=== PATIENT | female | born 1940 | race Caucasian/White ===

== ENCOUNTER 2016-10-11 18:29 | Emergency (ER) | payer MEDICARE, OTHER ==
[2016-10-11 18:39] VITALS: BP 155/74; PULSE 80; RESP 20; TEMP 98.1
--- NOTE | 2016-10-11 19:04 | ED ---
General Adult HPI - General Chief complaint: Back Pain/Injury Stated complaint: Body is in pain Time Seen by Provider: 10/11/16 18:54 Source: patient, RN notes reviewed Mode of arrival: ambulatory Limitations: no limitations - History of Present Illness Initial comments: 76-year-old female presents for medication refill. Her was admitted to the hospital and she does not have transportation to get home which is in [place]. Patient states she just needs a short supply of her medications until had this discharge. Patient states she does suffer from chronic pain. This time she is not having any acute medical emergencies. Patient denies any recent fever, chills, shortness of breath, chest pain, abdominal pain, nausea vomiting, numbness or tingling, dysuria or hematuria, constipation or diarrhea, headaches or visual changes, or any other current symptoms. - Related Data Home Medications Medication Instructions Recorded Confirmed Ergocalciferol [Vitamin D2] 50,000 unit PO Q7D 08/04/14 10/11/16 Previous Rx's Medication Instructions Recorded Sulfamethox-Tmp 800-160Mg [Bactrim 1 each PO Q12HR #14 tab 08/04/14 Ds] Albuterol Nebulized [Ventolin 1 inhalation PO QID #1 10/11/16 Nebulized] Gabapentin 600 mg PO HS #5 tab 10/11/16 Hydrocodone/Acetaminophen [[place] 1 each PO Q6HR PRN #20 tab 10/11/16 5-325] Lisinopril [Zestril] 10 mg PO DAILY #5 tab 10/11/16 Ranitidine HCl 300 mg PO HS #5 tab 10/11/16 Teriparatide [Forteo] 2.4 ml SQ DAILY #5 injection 10/11/16 amLODIPine [Norvasc] 5 mg PO DAILY #30 tab 10/11/16 Allergies Allergy/AdvReac Type Severity Reaction Status Date / Time No Known Allergies Allergy Verified 10/11/16 18:39 Review of Systems ROS Statement: Those systems with pertinent positive or pertinent negative responses have been documented in the HPI. ROS Other: All systems not noted in ROS Statement are negative. Past Medical History Past Medical History: COPD, GERD/Reflux, GI Bleed, Pneumonia, Thyroid Disorder Additional Past Medical History / Comment(s): Last pneumonia 1 yr ago. Hx also diverticulitis. Coloitis. limiting. Has recently had intermittent L chest pain. HX also of diverticulitis and colitis. She states thyroid dx as a history but levels normalized. Has had pneumonia-last time being 1 yr ago. limiting. She felt both of these sxs last nite and this AM. She has not slept in 2 days- unable to keep sleeping RX. down. Other RXs have stayed down. Other HX PUD, diverticulitis. down. Other RXs have stayed down. Hx. limiting. Hx diverticulitis, colitis, pepticulcers X 3 which. have bled, last time being 1 1 /2 yrs ago. Never had to recieve blood products. Also states she has not slept in 2 days because she has hx of insomnia and unable to keep sleeping RXs down. History of Any Multi-Drug Resistant Organisms: None Reported Past Surgical History: Orthopedic Surgery, Tubal Ligation Additional Past Surgical History / Comment(s): Pt had R shoulder arthroscopy 2 years ago-2011 which worked well-less pain and better ROM. retinal repair Past Anesthesia/Blood Transfusion Reactions: No Reported Reaction Past Psychological History: Anxiety Smoking Status: Current every day smoker Past Alcohol Use History: None Reported Past Drug Use History: None Reported - Past Family History Father Family Medical History: Coronary Artery Disease (CAD), CVA/TIA Additional Family Medical History / Comment(s): Father at age 69 of CVA Mother Family Medical History: Coronary Artery Disease (CAD) Additional Family Medical History / Comment(s): Mother at age 63 yrs of [place]. General Exam Limitations: no limitations General appearance: alert, in no apparent distress Head exam: Present: atraumatic, normocephalic, normal inspection ENT exam: Present: normal exam, mucous membranes moist Neck exam: Present: normal inspection. Absent: tenderness, meningismus, lymphadenopathy Respiratory exam: Present: normal lung sounds bilaterally. Absent: respiratory distress, wheezes, rales, rhonchi, stridor Cardiovascular Exam: Present: regular rate, normal rhythm, normal heart sounds. Absent: systolic murmur, diastolic murmur, rubs, gallop, clicks Neurological exam: Present: alert, oriented X3 Psychiatric exam: Present: normal affect, normal mood Skin exam: Present: warm, dry, intact, normal color. Absent: rash Course Vital Signs 10/11/16 18:34 Temperature 98.1 F Pulse Rate 80 Respiratory 20 Rate Blood Pressure 155/74 O2 Sat by Pulse 98 Oximetry Medical Decision Making - Medical Decision Making 76-year-old male presents emergency department with a chief complaint of medication refill. This and patient short course of her medications. Discussed return parameters and all questions patient stated that she understood the plan. She'll be discharged. Disposition Clinical Impression: Medication refill Disposition: HOME SELF-CARE Condition: Stable Instructions: Medicine Refill (ED) Additional Instructions: Please use medication as discussed. Please follow up with family doctor if symptoms have not improved over the next two days. Please return to the emergency room if your symptoms increase or worsen or for any other concerns. Prescriptions: Albuterol Nebulized [Ventolin Nebulized] 1 inhalation PO QID #1 amLODIPine [Norvasc] 5 mg PO DAILY #30 tab Gabapentin 600 mg PO HS #5 tab Hydrocodone/Acetaminophen [[place] 5-325] 1 each PO Q6HR PRN #20 tab PRN Reason: Pain Lisinopril [Zestril] 10 mg PO DAILY #5 tab Ranitidine HCl 300 mg PO HS #5 tab Teriparatide [Forteo] 2.4 ml SQ DAILY #5 injection Referrals: Richar Fuller DO [Primary Care Provider] - 1-2 days Time of Disposition: 19:02
== END 2016-10-11 19:16 | disposition home or self-care (01) ==
LOC: EC 18:29
DX: Z76.0 Encounter for issue of repeat prescription (principal); F17.200 Nicotine dependence, unspecified, uncomplicated; Z79.899 Other long term (current) drug therapy
CPT/HCPCS: 99282